=== PATIENT | female | born 1980 | race Hispanic/Latino ===

== ENCOUNTER 2021-01-30 14:34 | Emergency (ER) | payer OTHER ==
[~2021-01-30] VITALS: Ht 167.6 cm; Wt 84.8 kg
[~2021-01-30 14:34] MED LIST: CYCLOBENZAPRINE10 MG PO; DICLOFENAC SODI75 MG PO
[2021-01-30] MEDS ORDERED: PREDNISONE20 MG PO (17:15)
== END 2021-01-30 17:34 | disposition home or self-care (01) ==
LOC: ED 14:34
DX: M54.41 Lumbago with sciatica, right side (principal)
CPT/HCPCS: 72100; 99283-25; J7512

== ENCOUNTER 2022-12-05 08:23 | Emergency (ER) | payer BC ==
[~2022-12-05] VITALS: Ht 167.6 cm; Wt 91.9 kg
[~2022-12-05 08:23] MED LIST changes: +PREDNISONE20 MG PO
[2022-12-05] MEDS ORDERED: VALACYCLOVIR1000 MG PO (09:17)
[2022-12-05 09:43] VITALS: BP 100/71
== END 2022-12-05 09:43 | disposition home or self-care (01) ==
LOC: ED 08:23
DX: B02.9 Zoster without complications (principal); Z79.52 Long term (current) use of systemic steroids
CPT/HCPCS: 99282

== ENCOUNTER 2023-01-18 09:00 | Emergency (ER) | payer BC ==
[~2023-01-18] VITALS: Ht 162.6 cm; Wt 93.0 kg
[~2023-01-18 09:00] MED LIST changes: +VALACYCLOVIR1000 MG PO
[2023-01-18] MEDS ORDERED: PREDNISONE20 MG PO (10:45)
[2023-01-18] MEDS ORDERED: CYCLOBENZAPRINE10 MG PO (10:45)
[2023-01-18 10:53] VITALS: BP 106/72
== END 2023-01-18 10:53 | disposition home or self-care (01) ==
LOC: ED 09:00
DX: S39.012A Strain of muscle, fascia and tendon of lower back, initial encounter (principal); X50.1XXA Overexertion from prolonged static or awkward postures, initial encounter
CPT/HCPCS: J1100; J1885; J2405